=== PATIENT | female | born 1990 | race Caucasian/White ===

== ENCOUNTER 2016-08-10 19:13 | Emergency (ER) | payer SELFPAY ==
[~2016-08-10] VITALS: Ht 160 cm; Wt 78.0 kg
[2016-08-10 19:20] VITALS: Ht 160 cm; Wt 78.0 kg
[2016-08-10] MEDS ORDERED: ACETAMINOPHEN 325 MG TAB PO STA (19:59)
[2016-08-10] MEDS ORDERED: SOD CHLORIDE 0.9% 1,000 ML IV STA (19:59)
[2016-08-10] MEDS ORDERED: ONDANSETRON 4 MG INJ IV STA (19:59)
--- NOTE | 2016-08-10 20:09 | ERD ---
ER Documentation Chief Complaint Date/Time DATE: 08/10/16 TIME: 20:06 Chief Complaint vag bleed x 4 days; min nausea; min pain HPI This 26-year-old female presents to emergency department for vaginal bleeding 4 days, patient reports bleeding is intermittent and that she is not saturating peripads. Reports that she has taken 3 home test all say she is has not seen GLASS INSTALLER TECHNICIAN yet. Patient reports right-sided abdominal pain, denies dysuria 0.00 patient reports nausea as mild, last was able to eat and drink 2 hours prior to arrival to the emergency department, denies diarrhea , or dysuria. ROS All systems reviewed and are negative except as per history of present illness. Physical Exam Vitals Vital Signs Date Time Temp Pulse Resp B/P Pulse Ox O2 Delivery O2 Flow Rate FiO2 08/10/16 19:20 98.2 81 18 156/93 100 Physical Exam Const: No acute distress Head: Atraumatic Eyes: Normal Conjunctiva ENT: Normal External Ears, Nose and Mouth, PERRLA, EOMI. Neck: Resp: Chest rises and falls symmetrically, clear to auscultation bilaterally no respiratory distress Cardio: Abd: Soft, right lower abdominal pain, no CVA tenderness Skin: Back: No midline or flank tenderness Ext: Neur: Awake and alert Psych: Normal Mood and Affect Result Diagram: 08/10/162014 Results 24 hrs Laboratory Tests Test 08/10/16 20:15 White Blood Count 8.210^3/ul Red Blood Count 4.3910^6/ul Hemoglobin 13.7g/dl Hematocrit 40.8% Mean Corpuscular Volume 92.9fl Mean Corpuscular Hemoglobin 31.2pg Mean Corpuscular Hemoglobin Concent 33.6g/dl Red Cell Distribution Width 12.3% Platelet Count 73877^3/UL Mean Platelet Volume 10.4fl Neutrophils % 56.7% Lymphocytes % 28.8% Monocytes % 11.8% Eosinophils % 1.9% Basophils % 0.6% Nucleated Red Blood Cells % 0.0/100WBC Neutrophils # 4.710^3/ul Lymphocytes # 2.410^3/ul Monocytes # 1.010^3/ul Eosinophils # 0.210^3/ul Basophils # 0.110^3/ul Nucleated Red Blood Cells # 0.010^3/ul Urine Color RED Urine Clarity SLIGHTLY CLOUDY Urine pH 8.0 Urine Specific [place] 1.020 Urine Ketones TRACE Urine Nitrite NEGATIVE Urine Bilirubin 1+ Urine Ictotest NEGATIVE Urine Urobilinogen 0.2 E.U./dL Urine Leukocyte Esterase NEGATIVE Urine Microscopic RBC 2-5/HPF Urine Microscopic WBC 0-2/HPF Urine Squamous Epithelial Cells MANY Urine Amorphous Phosphates MANY Urine Bacteria FEW Urine Hemoglobin 3+ Urine Glucose NEGATIVE% Urine Total Protein 2+ Beta HCG, Quantitative 34.3mIU/ml Current Medications Medications (Trade) Dose Ordered Sig/Lazaro Route PRN Reason Start Time Stop Time Status Last Admin Dose Admin Sodium Chloride (NS) 1,000 ml @ 1,000 mls/hr Q1H STAT IV 08/10/16 19:59 08/10/16 20:58 DC 08/10/16 20:34 Acetaminophen (Tylenol Tab) 650 mg ONCE STAT PO 08/10/16 19:59 08/10/16 20:01 DC 08/10/16 20:35 Ondansetron HCl (Zofran Inj) 4 mg ONCE STAT IV 08/10/16 19:59 08/10/16 20:01 DC 08/10/16 20:34 Interpretation text CBC shows no evidence of hemorrhage or infection Beta hCG quant 34.3 Procedures/MDM CLINICAL INDICATION: . Vaginal bleeding. TECHNIQUE: Multiple sonographic images of the pelvis were obtained. Transabdominal and transvaginal views of the pelvis are available for review. The images were reviewed on a PACS workstation. COMPARISON: No prior studies are available for comparison. FINDINGS: Uterus is normal size at 5.9 x 3.3 x 4.4 cm. No intrauterine gestational sac, pole or heart motion is identified. The endometrium is normal thickness and 4.4 mm. Uterus is otherwise unremarkable. The ovaries are normal in size and echogenicity with normal vascular flow. Right ovary is 4.1 x 2.4 x 3 cm. Left ovary 3.9 x 1.6 x 2.8 cm. There is a 3 x 2.1 x 1.6 cm echogenic solid mass in the right adnexa adjacent to the right ovary without a gestational sac or, pole or heart motion identified.. There is trace free fluid in the posterior cul-de-sac. IMPRESSION: No live intrauterine identified. Normal endometrium. Right adnexal mass suspicious for an ectopic although no pole or heart motion is identified within the mass. Trace pelvic free fluid. Recommend correlation to quantitative beta HCG. Findings reported to PA. LOPEZ on 08/10/2016 9:09 PM. RPTAT: HMVK .Lavon Jennings MD, Date Time Electronically viewed and signed by .Lavon Jennings MD, MD on 08/10/2016 21:12 This 26-year-old female presents to emergency department today for vaginal bleeding 4 days, and that she has taken home tests today 3 all positive for . Threatened miscarriage, ectopic , urinary tract infection, and all suspected. OB ultrasound impression no live intrauterine identified. Normal endometrium. Right adnexal mass suspicious for an ectopic although no pole or heart motion is identified within the mass. Trace pelvic free fluid. Recommended correlation with quantitative beta hCG. Beta hCG is 34.3. Discriminatory zone. Close follow-up required. Repeat hCG plus ultrasound in 48 hours, return to emergency department for juan-pad saturation every 1-2 hours. Fatigue, weakness , dizziness. I feel the patient is stable for discharge at this time. And close outpatient management as discussed above. Patient to return to emergency department in 48 hours for repeat hCG and ultrasound. I have discussed results , examination findings, the treatment plan with the patient and family present prior to discharge. Indications for emergent reevaluation, side effects of medication were also discussed. All questions were answered. Patient verbalizes understanding and agrees with plan of care. Departure Diagnosis: Primary Impression: Vaginal bleeding Additional Impression: Adnexal mass Condition: Stable Patient Instructions: Ectopic Referrals: GLASS INSTALLER TECHNICIAN REFERRAL LIST Additional Instructions: Thank you for for coming to [facility] for your care today. Please ask your nurse or provider if you have questions about your care today and do not leave until all your questions have been answered. Please use any medications given as directed and follow-up with your doctor (or the doctor you were referred to) in the next 2-3 days. If you do not have a primary care doctor you may [place] [facility] [place] ([place] You may also use motrin and tylenol as needed for fever and/or pain unless instructed otherwise by your provider or nurse. Indications for more urgent follow-up have been discussed, but you may return to the Emergency Department at ANY time for any worrisome or worsening symptoms. If you have abdominal pain, please know that no test or exam you received is perfect and you should follow up within 8 hours for continued pain. If you had any imaging studies today, such as an X-Ray or CT Scan, these studies will be reviewed later by a radiologist. You will be called if there are important findings that were not identified today, so make sure the contact information you provided at registration is correct. If you received any narcotic pain control medicine today, such as Vicodin, Morphine or Dilaudid, your coordination and judgment may be affected for a number of hours. Please do not drive or operate heavy machinery, and you may want someone to assist you at home. If you were given a prescription for narcotic medication, be aware that it is very addictive- use sparingly and only if necessary. DOUGLAS LOPEZ August 10, 2016 20:09
[2016-08-10 20:30] LABS: ADD SCAN DIFF NO
[2016-08-10 20:32] LABS: BASOPHIL # 0.1 10^3/ul (0.0-0.1); BASOPHILS % 0.6 % (0.0-2.0); EOSINOPHILS # 0.2 10^3/ul (0.0-0.5); EOSINOPHILS % 1.9 % (0.0-7.0); HEMATOCRIT 40.8 % (37.0-47.0); HEMOGLOBIN 13.7 g/dl (12.0-16.0); LYMPHOCYTES # 2.4 10^3/ul (0.8-2.9); LYMPHOCYTES % 28.8 % (15.0-51.0); MEAN CORPUSCULAR HEMOGLOBIN 31.2 pg (29.0-33.0); MEAN CORPUSCULAR HGB CONC 33.6 g/dl (32.0-37.0); MEAN CORPUSCULAR VOLUME 92.9 fl (82.0-101.0); MEAN PLATELET VOLUME 10.4 fl (7.4-10.4); MONOCYTES % 11.8 % (0.0-11.0); NEUTROPHIL # 4.7 10^3/ul (1.6-7.5); NEUTROPHILS % 56.7 % (39.0-77.0); PLATELET COUNT 341 10^3/UL (140-415); RED BLOOD COUNT 4.39 10^6/ul (4.20-5.40); RED CELL DISTRIBUTION WIDTH 12.3 % (11.5-14.5); WHITE BLOOD COUNT 8.2 10^3/ul (4.8-10.8)
[2016-08-10 20:43] LABS: ADD UMIC YES; URINE BILIRUBIN (Dip) 1+ (NEGATIVE); URINE BLOOD (Dip) 3+ (NEGATIVE); URINE COLOR RED (YELLOW); URINE GLUCOSE (Dip) NEGATIVE (NEGATIVE); URINE KETONES (Dip) TRACE (NEGATIVE); URINE LEUKOCYTE ESTERASE (Dip) NEGATIVE (NEGATIVE); URINE NITRITE (Dip) NEGATIVE (NEGATIVE); URINE TOTAL PROTEIN (Dip) 2+ (NEGATIVE); URINE UROBILINOGEN (Dip) 0.2 E.U./dL (0.1-1.0)
[2016-08-10 20:55] LABS: SQUAMOUS EPITHELIAL CELL,UR MANY
[2016-08-10 20:56] LABS: BACTERIA,URINE FEW
[2016-08-10 20:58] LABS: ICTOTEST NEGATIVE (NEGATIVE)
--- NOTE | 2016-08-10 21:12 | RADRPT ---
PROCEDURE: US OB. CLINICAL INDICATION: . Vaginal bleeding. TECHNIQUE: Multiple sonographic images of the pelvis were obtained. Transabdominal and transvagin al views of the pelvis are available for review. The images were reviewed on a PACS workstation. COMPARISON: No prior studies are available for comparison. FINDINGS: Uterus is normal size at 5.9 x 3.3 x 4.4 cm. No intrauterine gestational sac, pole or heart motion is identified. The endometrium is normal thickness and 4.4 mm. Uterus is otherwise unremark able. The ovaries are normal in size and echogenicity with normal vascular flow. Right ovary is 4.1 x 2.4 x 3 cm. Left ovary 3.9 x 1.6 x 2.8 cm. There is a 3 x 2.1 x 1.6 cm echogenic solid mass in the right adnexa adjacent to the right ovary without a gestational sac or, pole or heart motio n identified.. There is trace free fluid in the posterior cul-de-sac. IMPRESSION: No live intrauterine identified. Normal endometrium. Right adnexal mass suspicious for a n ectopic although no pole or heart motion is identified within the mass. Trace pel surjit free fluid. Recommend correlation to quantitative beta HCG. Findings reported to PA. LOPEZ on 08/10/2016 9:09 PM. RPTAT: HMVK .Lavon Jennings MD, MD Date Time Electronically viewed and signed by .Lavon Jennings MD, MD on 08/10/2016 21:12 .K/
== END 2016-08-10 22:52 | disposition home or self-care (01) ==
LOC: FTE 19:13
DX: N93.9 Abnormal uterine and vaginal bleeding, unspecified (principal); N85.8 Other specified noninflammatory disorders of uterus
CPT/HCPCS: 36415; 76801; 76817; 81001; 84702; 85025; 96374; 99285; J2405; J7030; 81003

== ENCOUNTER 2016-08-13 04:54 | Emergency (ER) | payer SELFPAY ==
[~2016-08-13] VITALS: Ht 157.5 cm; Wt 77.0 kg
[2016-08-13 04:59] VITALS: Ht 157.5 cm; Wt 77.0 kg
--- NOTE | 2016-08-13 06:41 | ERD ---
ER Documentation Chief Complaint Date/Time DATE: 08/13/16 TIME: 06:34 Chief Complaint Right adnexal mass detected on last US done 08/10/16 HPI 26-year-old female who presented emergency department for a recheck. Patient was here on August 10, 2016. Was discharged with a final diagnosis of ectopic . Denies headache, loss of consciousness, dizziness, blurry vision, changes in vision, photophobia, facial pain, ear pain, throat pain, difficulty swallowing, neck pain, shoulder pain, chest pain, cough, hemoptysis, back pain, loss of appetite, nausea, vomiting, hematochezia, diarrhea, constipation, urinary symptoms, bladder and bowel incontinences, extremity weakness, extremity tenderness, numbness or tingling sensation, difficulty walking, recent travel, recent exposure to illness, recent antibiotic use in the last 3 months, fever, chills. No known drug allergies. No past medical history. No surgical history. Does not take any prescription medication at home. Social history: Not working this time. Denies smoking, use of alcohol, use of illegal drugs. ROS All systems reviewed and are negative except as per history of present illness. Medications Home Meds Active Scripts Ondansetron (Ondansetron Odt) 4 Mg Tab.rapdis, 4 MG PO Q6H Y for NAUSEA AND/OR VOMITING, #10 TAB Prov:PASILABAN,INDERAR F 08/13/16 Acetaminophen* (Tylophen*) 500 Mg Capsule, 1 CAP PO Q6H Y for PAIN AND OR ELEVATED TEMP, #20 CAP Prov:PASILABAN,KLAR F 08/13/16 Allergies Allergies: Coded Allergies: No Known Allergy (Unverified , 08/13/16) PMhx/Soc Medical and Surgical Hx: pt denies Medical Hx, pt denies Surgical Hx History of Surgery: No Anesthesia Reaction: No Hx Neurological Disorder: No Hx Respiratory Disorders: No Hx Cardiac Disorders: No Hx Psychiatric Problems: No Hx Miscellaneous Medical Probl: No Hx Alcohol Use: No Hx Substance Use: No Hx Tobacco Use: No Smoking Status: Never smoker Physical Exam Vitals Vital Signs Date Time Temp Pulse Resp B/P Pulse Ox O2 Delivery O2 Flow Rate FiO2 08/13/16 04:59 97.9 75 20 125/85 98 Physical Exam CONSTITUTIONAL: Well-appearing; well-nourished; in no apparent distress. HEAD: Normocephalic; atraumatic. EYES: Conjunctiva clear, sclera non-icteric, EOM intact. PERRL Ears: Hearing intact. EACs clear, TMs non-bulging, non-inflamed, translucent & mobile, ossicles normal appearance, No obstructions, no erythema, no discharges Nose: No obstructions. No polyps. No external lesions. Mucosa non-inflamed. No external lesions, septum and turbinates normal. No rhinorrhea. No discharges. Frontal sinus is non-tender to palpation. Maxillary sinus is non-tender to palpation. MOUTH: Moist mucous membranes, no lesion, no obstructions, no vesicles, no thrush, patent airway Throat: Uvula in midline. Right tonsil is +1 with no erythema, no exudate. Left tonsil is +1 with no erythema, no exudate. Tolerating secretions well. Good gag reflex. Patent airway. Neck: Supple, without lesions, bruits, or adenopathy. No mass. Thyroid non- enlarged and non-tender to palpation. CHEST: Symmetrical chest. Respirations even and not labored. No retractions noted. CARDIOVASCULAR: Normal S1, S2. RRR. No murmurs, gallops. RESPIRATORY: Normal chest excursion with respiration; breath sounds clear and equal bilaterally; no wheezes, rhonchi, or rales. Breathing even and unlabored. Speaking in clear, full, and complete sentences w/ ease. ABDOMEN: Normal bowel sounds normal. Soft, round, non-distended, non-guarding, no tenderness, no rebound, no organomegaly, no masses, no pulsating abdominal mass. No hernia. No peritoneal signs. : No CVA tenderness. BACK: Symmetrical shoulder. Spine is midline without deformity, tenderness. No evidence of trauma or deformity. PELVIS: Stable pelvis. No evidence of trauma or deformity. MUSCULOSKELETAL: Normal gait and station. No misalignment, asymmetry, crepitation, defects, tenderness, masses, effusions, decreased range of motion, instability, atrophy or abnormal strength or tone in the head, neck, spine, ribs , pelvis or extremities. No calf tenderness. NEUROVASCULAR: Distal pulses are present. Pedal pulse are present, equal, and normal. Capillary refills are < 2 seconds. NEUROLOGIC: Alert and oriented x4. Speaks full and clear sentences. Cranial Nerves II-XII normal. Sensation to pain, touch, and proprioception normal. Grossly unremarkable. No neurologic deficits. Romberg test is negative. PSYCHOLOGICAL: The patients mood and manner are appropriate. No hallucinations , delusions. Not SI. Not HI. Has the capacity to decide for self SKIN: Normal for age and ethnicity; warm; dry; good turgor; no apparent lesions or exudates. No rashes, hives, discoloration. Intact. Result Diagram: 08/13/16 0909 08/13/16 0000 Results 24 hrs Laboratory Tests Test 08/13/16 00:00 08/13/16 06:00 08/13/16 09:09 08/13/16 09:14 Sodium Level 141mmol/L Potassium Level 4.2mmol/L Chloride Level 102mmol/L Carbon Dioxide Level 25mmol/L Anion Gap 18 Blood Urea Nitrogen 10mg/dl Creatinine 0.65mg/dl Glucose Level 101mg/dl Calcium Level 10.0mg/dl Total Bilirubin 0.2mg/dl Direct Bilirubin 0.00mg/dl Indirect Bilirubin 0.2mg/dl Aspartate Amino Transf (AST/SGOT) 34IU/L Alanine Aminotransferase (ALT/SGPT) 62IU/L Alkaline Phosphatase 77IU/L Total Protein 8.2g/dl Albumin 5.1g/dl Globulin 3.10g/dl Albumin/Globulin Ratio 1.64 Lipase 80U/L Beta HCG, Quantitative 21.0mIU/ml White Blood Count 8.310^3/ul Red Blood Count 4.3810^6/ul Hemoglobin 13.7g/dl Hematocrit 40.1% Mean Corpuscular Volume 91.6fl Mean Corpuscular Hemoglobin 31.3pg Mean Corpuscular Hemoglobin Concent 34.2g/dl Red Cell Distribution Width 12.1% Platelet Count 69897^3/UL Mean Platelet Volume 10.2fl Neutrophils % 54.2% Lymphocytes % 35.9% Monocytes % 6.6% Eosinophils % 2.2% Basophils % 0.7% Nucleated Red Blood Cells % 0.0/100WBC Neutrophils # 4.510^3/ul Lymphocytes # 3.010^3/ul Monocytes # 0.610^3/ul Eosinophils # 0.210^3/ul Basophils # 0.110^3/ul Nucleated Red Blood Cells # 0.010^3/ul Urine Color RED Urine Clarity CLOUDY Urine pH 5.5 Urine Specific [place] 1.025 Urine Ketones NEGATIVE Urine Nitrite NEGATIVE Urine Bilirubin NEGATIVE Urine Urobilinogen 0.2 E.U./dL Urine Leukocyte Esterase NEGATIVE Urine Microscopic RBC >200/HPF Urine Microscopic WBC 0-2/HPF Urine Squamous Epithelial Cells MODERATE Urine Bacteria FEW Urine Hemoglobin 3+ Urine Glucose NEGATIVE% Urine Total Protein 1+ Procedures/MDM Examination: Please see physical examination. Disease process, medical treatment was explained to the patient and family member. They verbalized understanding and agreed with the diagnostic tests, medical treatment, and follow-up care. Radiology: OB ultrasound Impression:Right adnexal 2.7 cm complex mass suspicious for ectopic , unchanged from 08/10/2016. Mild pelvic free fluid, unchanged. No intrauterine identified. Blood works: Reviewed. POC urine : Urinalysis: Reviewed. Treatment: Re-evaluation: Denies headache, dizziness, blurred vision, neck pain, shoulder pain, chest pain, abdominal pain, back pain, nausea, vomiting. No episode of emesis in the emergency department. No active bleeding. No neurological deficits. No neurovascular deficits. No signs and symptoms of sepsis and/or hemorrhage. Consultation: None. Medical decision makin-year-old female who presented emergency department for a recheck. Patient was here on August 10, 2016. Was discharged with a final diagnosis of ectopic . Patient's complaint, patient's history about her complaint, my physical findings, diagnostic test results, my reevaluation are consistent my final diagnosis of re-check for abdominal pain in . Medications prescribed are the following: Zofran. Tylenol. Patient and family member are made aware of the side effects and adverse reactions of the medications prescribed. Instructed on when to seek emergent and medical attention in case allergic/anaphylactic reactions or severe side effects and or adverse reactions to medications. Patient and family member verbalized understanding. Patient instructed Instructed to follow-up with his PCP in 24-48 hours. Follow-up with OB/ continuous miner operator helper in the next 24-48 hours. Instructed to Call 911 for chest pain, shortness of breath. Advised to come back here in ED as soon as possible for severity of symptoms which includes but not limited to: any new symptoms; shortness of breath/difficulty of breathing; cardiovascular changes; severe gastrointestinal symptoms; signs and symptoms of bleeding and or infection; signs of compartment syndrome/neurovascular changes; neurological changes/deficits. Patient and family member verbalized understanding. Upon discharge, patient is alert and oriented x 4, speaks full and clear sentences, denies pain, has no neurological deficits, has no neurovascular deficits, difficulty of breathing. Breathing even and unlabored. Lung sounds are clear to auscultation. Not in distress. Appears comfortable. Ambulatory with steady gait. Appears satisfied with care provided here in ED. Departure Diagnosis: Primary Impression: Vaginal bleeding Condition: Stable Additional Instructions: Patient instructed Instructed to follow-up with his PCP in 24-48 hours. Follow-up with OB/ continuous miner operator helper the next 24-48 hours. Instructed to Call 911 for chest pain, shortness of breath. Advised to come back here in ED as soon as possible for severity of symptoms which includes but not limited to: any new symptoms; shortness of breath/difficulty of breathing; cardiovascular changes; severe gastrointestinal symptoms; signs and symptoms of bleeding and or infection; signs of compartment syndrome/neurovascular changes; neurological changes/deficits. Patient and family member verbalized understanding. ZION CASANOVA August 13, 2016 06:41
--- NOTE | 2016-08-13 08:00 | RADRPT ---
PROCEDURE: Obstetrical ultrasound. CLINICAL INDICATION: Vaginal bleeding. TECHNIQUE: Multiple sonographic images of the pelvis were obtained utilizing a transabdominal and endovaginal technique. The images were reviewed on a PACS workstation. COMPARISON: 08/10/2016. FINDINGS: The uterus is visualized and measures 5.2 x 3.4 x 3.7 cm. No abnormal uterine mass is identified. T he endometrial echo complex is homogeneous and measures 3.7 mm. No intrauterine is identif ied. There is mild pelvic free fluid. The right ovary has a normal echotexture and measures 3.4 x 1.8 x 2.3 cm. The left ovary has a normal echotexture and measures 3.4 x 1.5 x 2.2 cm. There is normal f low to both ovaries. Again demonstrated is a complex mass adjacent to the right ovary measuring 2.7 x 1.9 x 2.6 cm. IMPRESSION: Right adnexal 2.7 cm complex mass suspicious for ectopic , unchanged from 08/10/2016. Mild pelvic free fluid, unchanged. No intrauterine identified. .Hung Lewis MD, Date Time Electronically viewed and signed by .Hung Lewis MD, MD on 08/13/2016 08:00 .T/
[2016-08-13 08:46] LABS: ADD SCAN DIFF NO
[2016-08-13 08:51] LABS: ALBUMIN 5.1 g/dl (3.3-4.9)
[2016-08-13 08:52] LABS: POTASSIUM 4.2 mmol/L (3.5-5.1)
[2016-08-13 08:53] LABS: CREATININE 0.65 mg/dl (0.44-1.00)
[2016-08-13 08:54] LABS: ALBUMIN/GLOBULIN RATIO 1.64; BILIRUBIN,INDIRECT 0.2 mg/dl (0-1.1); BILIRUBIN,TOTAL 0.2 mg/dl (0.2-1.3); TOTAL PROTEIN 8.2 g/dl (6.1-8.1)
[2016-08-13 09:20] LABS: BASOPHIL # 0.1 10^3/ul (0.0-0.1); BASOPHILS % 0.7 % (0.0-2.0); EOSINOPHILS # 0.2 10^3/ul (0.0-0.5); EOSINOPHILS % 2.2 % (0.0-7.0); HEMATOCRIT 40.1 % (37.0-47.0); HEMOGLOBIN 13.7 g/dl (12.0-16.0); LYMPHOCYTES % 35.9 % (15.0-51.0); MEAN CORPUSCULAR HEMOGLOBIN 31.3 pg (29.0-33.0); MEAN CORPUSCULAR HGB CONC 34.2 g/dl (32.0-37.0); MEAN CORPUSCULAR VOLUME 91.6 fl (82.0-101.0); MEAN PLATELET VOLUME 10.2 fl (7.4-10.4); MONOCYTE # 0.6 10^3/ul (0.3-0.9); MONOCYTES % 6.6 % (0.0-11.0); NEUTROPHIL # 4.5 10^3/ul (1.6-7.5); NEUTROPHILS % 54.2 % (39.0-77.0); PLATELET COUNT 338 10^3/UL (140-415); RED BLOOD COUNT 4.38 10^6/ul (4.20-5.40); RED CELL DISTRIBUTION WIDTH 12.1 % (11.5-14.5); WHITE BLOOD COUNT 8.3 10^3/ul (4.8-10.8)
[2016-08-13 09:48] LABS: ADD UMIC YES; URINE BILIRUBIN (Dip) NEGATIVE (NEGATIVE); URINE BLOOD (Dip) 3+ (NEGATIVE); URINE COLOR RED (YELLOW); URINE GLUCOSE (Dip) NEGATIVE (NEGATIVE); URINE KETONES (Dip) NEGATIVE (NEGATIVE); URINE LEUKOCYTE ESTERASE (Dip) NEGATIVE (NEGATIVE); URINE NITRITE (Dip) NEGATIVE (NEGATIVE); URINE TOTAL PROTEIN (Dip) 1+ (NEGATIVE); URINE UROBILINOGEN (Dip) 0.2 E.U./dL (0.1-1.0)
[2016-08-13 09:53] LABS: BACTERIA,URINE FEW; SQUAMOUS EPITHELIAL CELL,UR MODERATE; URINE RBCS >200 /HPF (0)
[2016-08-13] MEDS ORDERED: ACET500C5 PO (10:14)
[2016-08-13] MEDS ORDERED: ONDA4TAB14 PO (10:14)
== END 2016-08-13 10:46 | disposition home or self-care (01) ==
LOC: FTE 04:54
DX: N93.9 Abnormal uterine and vaginal bleeding, unspecified (principal)
CPT/HCPCS: 36415; 76801; 76817; 80053; 81001; 81003; 83690; 84702; 85025; 87086